=== PATIENT | male | born 1985 | race African-American/Black ===

== ENCOUNTER 2024-01-27 12:55 | Emergency (ER) | payer SELFPAY ==
[~2024-01-27] VITALS: Ht 162.6 cm; Wt 68.0 kg
[2024-01-27 13:40] VITALS: BP 96/60; TEMP 98.4; O2SAT 100
[2024-01-27] MEDS ORDERED: HYDR50TA54 MT (14:27)
[2024-01-27 14:37] VITALS: PULSE 72; RESP 16
== END 2024-01-27 14:39 | disposition home or self-care (01) ==
LOC: ER 12:55
DX: F41.9 Anxiety disorder, unspecified (principal); F43.10 Post-traumatic stress disorder, unspecified
CPT/HCPCS: 99283